=== PATIENT | female | born 1940 | race Caucasian/White ===

== ENCOUNTER 2018-10-05 08:17 | Emergency (ER) | payer MEDICARE, BC ==
[2018-10-05] MEDS ORDERED: NS 0.9% 1000 ML** 1,000 ML IV ONE (08:43)
[2018-10-05] MEDS ORDERED: Morphine 4 MG/ML VIAL (1 ml) 4 MG/ML VIAL IV ONE (08:43)
[2018-10-05] MEDS ORDERED: Ondansetron INJ* 2 MG/ML VIAL IV ONE ×2 (08:56→10:37)
[2018-10-05 08:58] LABS: ABS Basophils 0.1 10^3/ul (0-0.2); ABS Eosinophils 0.2 10^3/ul (0-0.6); ABS Lymphocytes 1.6 10^3/ul (1.0-4.8); ABS Monocytes 0.5 10^3/ul (0-0.8); ABS Neutrophils 4.8 10^3/ul (1.5-7.7); Eosinophil % 2.5 %; Hematocrit 40 % (35-47); Hemoglobin 13.6 g/dL (12.0-16.0); Lymphocyte % 22.1 %; Mean Corpuscular HGB Conc 34 g/dL (31-36); Mean Corpuscular Hemoglobin 35 pg (27-31); Mean Corpuscular Volume 102 fL (80-97); Mean Platelet Volume 7.5 fL (7.4-10.4); Nucleated Red Blood Cells % 0.1; Platelet Count 309 10^3/uL (150-450); Red Blood Count 3.91 10^6 /uL (3.70-4.87); Red Cell Distribution Width 14 % (10-15); White Blood Count 7.2 10^3/uL (3.5-10.8)
[2018-10-05 09:11] LABS: INR 1.08 (0.82-1.09)
[2018-10-05 09:19] LABS: C Reactive Protein 1.17 mg/L (<8.01)
[2018-10-05 09:20] LABS: Albumin 4.4 g/dL (3.2-5.2); BUN/Creatinine Ratio 17.8 (8-20); Calcium 9.5 mg/dL (8.6-10.3); EGFR African American 73.9 (>60); Globulin 2.2 g/dL (2-4); Potassium 3.8 mmol/L (3.5-5.0); Total Protein 6.6 g/dL (6.4-8.9)
[2018-10-05 09:21] LABS: Total Bilirubin 0.9 mg/dL (0.2-1.0)
[2018-10-05] MEDS ORDERED: Famotidine IV* 10 MG/ML 2 ML (20 mg) IV SLOW PU ONE (09:31)
[2018-10-05] MEDS ORDERED: Ketorolac INJ* 30 MG/ML 1 ML VIAL IV ONE (09:38)
[2018-10-05] MEDS ORDERED: Al Hydrox/Mg Hydrox/Simet LIQ* 30 ML UDC PO ONE (10:57)
[2018-10-05 11:14] LABS: Urine Appearance Clear; Urine Bacteria Absent (Absent); Urine Bilirubin Negative (Negative); Urine Blood 1+ (Negative); Urine Color Yellow; Urine Glucose Negative (Negative); Urine Ketones 1+ (Negative); Urine Nitrite Negative (Negative); Urine Protein Negative (Negative); Urine Red Blood Cell 1+(3-5/hpf) (Absent); Urine Specific Gravity 1.014 (1.010-1.030); Urine Squamous Epithelial Cell Present (Absent); Urine Urobilinogen Negative (Negative); Urine White Blood Cell Trace(0-5/hpf) (Absent)
[2018-10-05] MEDS ORDERED: Metoclopramide IV* 5 MG/ML 2 ML VIAL IV ONE (12:10)
[2018-10-05 14:33] VITALS: BP 119/62
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
== END 2018-10-05 14:33 | disposition home or self-care (01) ==
LOC: ED 08:17
DX: R10.13 Epigastric pain (principal); R11.2 Nausea with vomiting, unspecified; R91.8 Other nonspecific abnormal finding of lung field; N20.0 Calculus of kidney; R00.1 Bradycardia, unspecified; R23.3 Spontaneous ecchymoses; R07.89 Other chest pain; I10 Essential (primary) hypertension; K21.9 Gastro-esophageal reflux disease without esophagitis; Z79.01 Long term (current) use of anticoagulants; Z95.5 Presence of coronary angioplasty implant and graft; Z96.642 Presence of left artificial hip joint; Z90.49 Acquired absence of other specified parts of digestive tract; Z90.710 Acquired absence of both cervix and uterus; Z88.5 Allergy status to narcotic agent; Z88.1 Allergy status to other antibiotic agents; Z88.3 Allergy status to other anti-infective agents; Z91.041 Radiographic dye allergy status
CPT/HCPCS: 36415; 71250; 74176; 80053; 81003; 81015; 82150; 83605; 83690; 84484; 85025; 85610; 86140; 87086; 93005; 96361; 96374; 96375; 96376; 99283; A9270-GY; J1885; J2270; J2405; J2765

== ENCOUNTER → 2018-10-06 17:03 | Emergency (ER) | payer MEDICARE, BC ==
[2018-10-06 17:07] VITALS: BP 180/92
== END | disposition left against medical advice (07) ==
LOC: ED 17:03
DX: R06.02 Shortness of breath (principal); N23 Unspecified renal colic; Z53.21 Procedure and treatment not carried out due to patient leaving prior to being seen by health care provider

== ENCOUNTER 2018-10-07 02:22 | Emergency (ER) | payer MEDICARE, BC ==
[2018-10-07] MEDS ORDERED: Morphine 4 MG/ML VIAL (1 ml) 4 MG/ML VIAL IV ONE (02:57)
[2018-10-07] MEDS ORDERED: Pantoprazole IV* 40 MG IV ONE (02:58)
[2018-10-07] MEDS ORDERED: Metoclopramide IV* 5 MG/ML 2 ML VIAL IV SLOW PU ONE (02:58)
--- NOTE | 2018-10-07 02:58 | ED ---
Abdominal Pain/Female - HPI Summary HPI Summary: This pt is a 77 y/o F presenting to [facility] accompanied by her daughter with a CC of bilateral flank pain that radiates to her back. She states that the pain has been present for the past 3 days and is currently rated an 8/10 in severity. She stated that she has nausea and dry heaving for the past three days. She stated that she hasnt pooped since Thursday. She denies any fever, diaphoresis, chills, and urinary issues. She stated no aggravating factors and stated no alleviating factors. She has a PMHx of pancreatitis. - History of Current Complaint Chief Complaint: EDAbdPain Stated Complaint: ABD PAIN PER PT Time Seen by Provider: 10/07/18 02:41 Hx Obtained From: Patient ?: No Onset/Duration: Gradual Onset - 3 days, Lasting Days - 3, Still Present Timing: Constant Severity Initially: Moderate Severity Currently: Severe Pain Intensity: 8 Pain Scale Used: 0-10 Numeric Location: Diffuse Radiates: Yes Radiates to: Back Aggravating Factor(s): Nothing Alleviating Factor(s): Nothing Associated Signs and Symptoms: Positive: Back Pain, Constipation, Nausea. Negative: Diaphoresis, Fever, Chest Pain, Urinary Symptoms, Vomiting, Diarrhea Allergies/Adverse Reactions: Allergies Allergy/AdvReac Type Severity Reaction Status Date / Time Iodinated Contrast- Oral and Allergy Severe Anaphylatic Verified 10/07/18 02:26 IV Dye Shock codeine Allergy GI Upset Verified 10/07/18 02:26 iodine Allergy Edema Verified 10/07/18 02:26 Tetracyclines Allergy Unknown Verified 10/07/18 02:26 Reaction Details Home Medications: Home Medications Eliquis 2.5 mg PO DAILY 10/07/18 [History Confirmed 10/07/18] Hydrocodone/Acetaminophen [Hydrocodone/Acetaminophen 5-325 mg] 1 tab PO Q6HR PRN 10/07/18 [History Confirmed 10/07/18] PMH/Surg Hx/FS Hx/Imm Hx Previously Healthy: Yes GI History: Reports: Hx Gall Bladder Disease, Other GI Disorders - Pancreatitis Sensory History: Denies: Hx Contacts or Glasses Opthamlomology History: Denies: Hx Contacts or Glasses - Surgical History Surgical History: Yes Surgery Procedure, Year, and Place: Left hip replacement, cholecystectomy, hysterectomy, L knee, cardiac stents Infectious Disease History: No Infectious Disease History: Denies: Traveled Outside the [place] in Last 30 Days - Social History Occupation: Retired Alcohol Use: Daily Alcohol Amount: wine Hx Substance Use: No Substance Use Type: Reports: None Hx Tobacco Use: No Smoking Status (MU): Former Smoker Review of Systems Negative: Fever, Skin Diaphoresis Negative: Chest Pain Positive: Abdominal Pain, Nausea, Other - constipation. Negative: Vomiting, Diarrhea Genitourinary: Negative Negative: Headache All Other Systems Reviewed And Are Negative: Yes Physical Exam - Summary Physical Exam Summary: VITAL SIGNS: Reviewed. GENERAL: Patient is a well-developed and nourished female who is lying comfortable in the stretcher. Patient is not in any acute respiratory distress. HEAD AND FACE: No signs of trauma. No ecchymosis, hematomas or skull depressions. No sinus tenderness. EYES: PERRLA, EOMI x 2, No injected conjunctiva, no nystagmus. EARS: Hearing grossly intact. Ear canals and tympanic membranes are within normal limits. MOUTH: Oropharynx within normal limits. NECK: Supple, trachea is midline, no adenopathy, no JVD, no carotid bruit, no c- spine tenderness, neck with full ROM CHEST: Symmetric, no tenderness at palpation LUNGS: Clear to auscultation bilaterally. No wheezing or crackles. CVS: Regular rate and rhythm, S1 and S2 present, no murmurs or gallops appreciated. ABDOMEN: Soft, epigastric tenderness. No signs of distention. No rebound no guarding, and no masses palpated. Bowel sounds are normal. EXTREMITIES: FROM in all major joints, no edema, no cyanosis or clubbing. NEURO: Alert and oriented x 3. No acute neurological deficits. Speech is normal and follows commands. SKIN: Dry and warm Triage Information Reviewed: Yes Vital Signs On Initial Exam: Initial Vitals Temp Pulse Resp BP Pulse Ox 96.5 F 68 17 179/87 98 10/07/18 02:24 10/07/18 02:24 10/07/18 02:24 10/07/18 02:24 10/07/18 02:24 Vital Signs Reviewed: Yes Diagnostics - Vital Signs Vital Signs Temp Pulse Resp BP Pulse Ox 10/07/18 02:24 96.5 F 68 17 179/87 98 - Laboratory Result Diagrams: 10/07/18 03:09 10/07/18 03:09 Lab Statement: Any lab studies that have been ordered have been reviewed, and results considered in the medical decision making process. - EKG 0309 Cardiac Rate: NL - 57 BPM EKG Rhythm: Sinus Rhythm ST Segment: Normal Ectopy: None Summary of EKG Findings: normal Sinus rhythm of 57 BPM and Normal axis. Normal interval. No ischemic changes. Interpreted by Dr. Duenas at 0310 10/07/18. Abdominal Pain Fem Course/Dx - Course Course Of Treatment: This pt is a 77 y/o F presenting to [facility] accompanied by her daughter with a CC of bilateral flank pain that radiates to her back. She states that the pain has been present for the past 3 days and is currently rated an 8/10 in severity. Her PE found that she has epigastric tenderness. Her EKG showed that she has a normal Sinus rhythm of 57 BPM and Normal axis. Normal interval. No ischemic changes. He lab results are consistent with a UTI. She will be discharged home with a Dx of a UTI due to a lack of other abnormal findings. - Diagnoses Provider Diagnoses: UTI (urinary tract infection) Discharge - Sign-Out/Discharge Documenting (check all that apply): Patient Departure - discharge Patient Received Moderate/Deep Sedation with Procedure: No - Discharge Plan Condition: Stable Disposition: HOME Prescriptions: Levofloxacin TAB* [Levaquin TAB*] 500 mg PO DAILY #7 tab Patient Education Materials: Urinary Tract Infection in Women (ED) Referrals: [facility] [Outside] - 2 Days Additional Instructions: Please follow up with [facility] in 2-3 days and return to the emergency department for any new or worsening symptoms. - Billing Disposition and Condition Condition: STABLE Disposition: Home - Attestation Statements Document Initiated by Richi: Yes Documenting Scribe: Guevara Dordao Provider For Whom Richi is Documenting (Include Credential): Noble Duenas MD Scribe Attestation: Guevara Hernandez scribed for Noble Duenas MD on 10/07/18 at 3883. Scribe Documentation Reviewed: Yes Provider Attestation: The documentation as recorded by the Guevara sewell accurately reflects the service I personally performed and the decisions made by , Noble Duenas MD Status of Scribe Document: Viewed
[2018-10-07] MEDS ORDERED: Lidocaine 2% VISCOUS* 15 ML UDC PO ONE (02:59)
[2018-10-07] MEDS ORDERED: Al Hydrox/Mg Hydrox/Simet LIQ* 30 ML UDC PO ONE (02:59)
[2018-10-07 03:18] LABS: ABS Basophils 0.1 10^3/ul (0-0.2); ABS Eosinophils 0.1 10^3/ul (0-0.6); ABS Lymphocytes 1.4 10^3/ul (1.0-4.8); ABS Monocytes 0.6 10^3/ul (0-0.8); ABS Neutrophils 7.4 10^3/ul (1.5-7.7); Eosinophil % 1.4 %; Hematocrit 37 % (35-47); Hemoglobin 12.4 g/dL (12.0-16.0); Lymphocyte % 14.4 %; Mean Corpuscular HGB Conc 34 g/dL (31-36); Mean Corpuscular Hemoglobin 34 pg (27-31); Mean Corpuscular Volume 102 fL (80-97); Mean Platelet Volume 7.6 fL (7.4-10.4); Platelet Count 290 10^3/uL (150-450); Red Cell Distribution Width 15 % (10-15); White Blood Count 9.6 10^3/uL (3.5-10.8)
[2018-10-07 03:21] LABS: Urine Appearance Clear; Urine Bacteria 1+ (Absent); Urine Bilirubin Negative (Negative); Urine Blood 1+ (Negative); Urine Color Straw; Urine Glucose Negative (Negative); Urine Ketones Trace (Negative); Urine Nitrite Negative (Negative); Urine Protein Negative (Negative); Urine Red Blood Cell 1+(3-5/hpf) (Absent); Urine Specific Gravity 1.004 (1.010-1.030); Urine Squamous Epithelial Cell Present (Absent); Urine Urobilinogen Negative (Negative); Urine White Blood Cell 2+(11-20/hpf) (Absent)
[2018-10-07 03:29] LABS: Activated Partial Thrombo Time 39.4 seconds (26.0-38.0); INR 0.99 (0.82-1.09)
[2018-10-07 03:35] LABS: ALT 80 U/L (7-52); AST 35 U/L (13-39); Albumin 4.1 g/dL (3.2-5.2); Alkaline Phosphatase 93 U/L (34-104); Amylase 16 U/L (29-103); Anion Gap 6 mmol/L (2-11); BUN/Creatinine Ratio 12.5 (8-20); Blood Urea Nitrogen 10 mg/dL (6-24); C Reactive Protein 1.22 mg/L (<8.01); CO2 Carbon Dioxide 27 mmol/L (22-32); Calcium 9.6 mg/dL (8.6-10.3); Chloride 101 mmol/L (101-111); EGFR African American 84.6 (>60); EGFR Non-African American 69.9 (>60); Globulin 2.1 g/dL (2-4); Glucose 115 mg/dL (70-100); Magnesium 1.8 mg/dL (1.9-2.7); Potassium 3.6 mmol/L (3.5-5.0); Sodium 134 mmol/L (135-145); Total Protein 6.2 g/dL (6.4-8.9)
[2018-10-07 04:16] LABS: Alcohol < 10 mg/dL (<10)
[2018-10-07] MEDS ORDERED: Levofloxacin TAB* 500 MG PO ONE (04:21)
[2018-10-07 04:42] VITALS: BP 119/64
== END 2018-10-07 04:41 | disposition home or self-care (01) ==
LOC: ED 02:22
DX: N39.0 Urinary tract infection, site not specified (principal); Z88.5 Allergy status to narcotic agent; Z88.1 Allergy status to other antibiotic agents; Z91.041 Radiographic dye allergy status; Z79.01 Long term (current) use of anticoagulants; Z79.899 Other long term (current) drug therapy; Z87.891 Personal history of nicotine dependence
CPT/HCPCS: 36415; 80053; 80320; 81003; 81015; 82150; 83690; 83735; 84484; 85025; 85610; 85730; 86140; 87086; 93005; 96365; 96366; 96375; 99285; A9270-GY; G0480; J2270; J2765